=== PATIENT | female | born 1945 | race Caucasian/White ===

== ENCOUNTER → 2017-02-28 | Outpatient (CLI) | payer MEDICARE ==
[~2017-02-28] MED LIST: ANTIVERT PO; ASPIRIN PO; ATARAX PO; COLCHICINE PO; DIOVAN PO; FLEXERIL10 MG PO; KEFLEX PO; MEDROL PO; MENTHOL; PHENERGAN25 MG PO; QUESTRAN LIGH4 G/PKT PO; ULTRAM PO; URSO FORTE PO; ZOFRAN ODT4 MG PO; [UNRECOGNIZED DRUG - OTHER]
--- NOTE | ~2017-02-28 | MY29 ---
[facility] A Service of [facility] RADIOLOGY TEXT RESULTS PATIENT: SUPA LOPEZ [facility] 45 UNIT #: [id number] AGE: [address]: Nidia Yoon SEX: F ORDER DR: [id number] [facility] [address] [place], [place] [address] [id number] O MR#: [id number] Acc #: [id number] NAME: SUPA LOPEZ : 1945 SEX: F STUDY DATE/TIME: 02/28/2017 13:48 [facility] ROOM: STUDY DESCRIPTION: MY ESTUARDO SCREENING W/ CAD BILAT Attending Physician: Nidia Yoon A.P.R.N. Referring Physician: Nidia Yoon A.P.R.N. Ordering Physician: Nidia Yoon A.P.R.N. Primary Care Physician: Laila Guevara M.D. MEDICAL IMAGING REPORT This report is preliminary unless electronic signature is present EXAM Bilateral Digital Screening Mammogram with CAD INDICATION Breast cancer screening. 71-year-old asymptomatic female who reports an aunt with breast cancer. She has personal history of breast cancer. Patient also reports reduction mammoplasty in the 1970s. COMPARISON December 02, 2015 July 21, 2014 May 27, 2013 March 12, 2012 January 17, 2011 January 02, 2010 July 22, 2007 November 26, 2005. FINDINGS The breasts are almost entirely fatty. No suspicious findings are present. IMPRESSION No mammographic evidence of malignancy. Annual screening mammography and clinical breast exam are recommended. A result letter will be sent to the patient. Patients over the age of 40 are entered into a reminder system with target due date for the next mammogram. BIRADS: 1 Negative Dictated by... Shon Wade M.D. THIS IS AN ELECTRONICALLY VERIFIED REPORT Shon Wade M.D. at 03/03/2017 10:22 PM BLM/rnr [facility] A Service of [facility] RADIOLOGY TEXT RESULTS PATIENT: SUPA LOPEZ LOCATION: [facility] #: [id number] : 45 UNIT #: [id number] AGE: [address]: Nidia Yoon SEX: F ORDER DR: TD: 02/28/2017 21:51 JOB #: [id number] MEDICAL IMAGING REPORT Page 1 of 1 COPY
--- NOTE | ~2017-02-28 | BD1 ---
[facility] A Service of [facility] RADIOLOGY TEXT RESULTS PATIENT: SUPA LOPEZ LOCATION: [facility] : 45 UNIT #: [id number] AGE: [address]: Nidia Yoon SEX: F ORDER DR: [id number] [facility] [address] [place], [place] [address] [id number] O MR#: [id number] Acc #: [id number] NAME: SUPA LOPEZ : 1945 SEX: F STUDY DATE/TIME: 02/28/2017 13:29 UNIT: [facility] ROOM: STUDY DESCRIPTION: BD Dexa Bone Dens 1+ Site Attending Physician: Nidia Yoon A.P.R.N. Referring Physician: Nidia Yoon A.P.R.N. Ordering Physician: Nidia Yoon A.P.R.N. Primary Care Physician: Laila Guevara M.D. MEDICAL IMAGING REPORT This report is preliminary unless electronic signature is present EXAM DXA scan of the lumbar spine and hips. INDICATION Postmenopausal osteoporosis screening. COMPARISON Comparison study is 08/17/2014 and that study showed osteoporosis. FINDINGS Study was done on a Hologic machine. The L1 through L4 bone mineral density is 1.077 g/cm2, with T-score of 0.3 and Z-score of 2.5. The left hip neck bone mineral density is 0.54 g/cm2, for a T-score of -2.8 and Z-score -0.9. No fractures visible. IMPRESSION The lowest T-score today is in the left hip, which is -2.8, indicating osteoporosis. It is slightly worse than on the prior study from 08/17/2014, with a T-score of -2.5. Dictated by... Sudheer Tavares M.D. THIS IS AN ELECTRONICALLY VERIFIED REPORT Sudheer Tavares M.D. at 03/02/2017 8:37 AM NIALL/manolo TD: 03/01/2017 19:23 JOB #: [id number] [facility] A Service of [facility] RADIOLOGY TEXT RESULTS PATIENT: SUPA LOPEZ [id number] 45 UNIT #: [id number] AGE: [address]: Nidia Yoon SEX: F ORDER DR: MEDICAL IMAGING REPORT Page 1 of 1 COPY
== END | disposition home or self-care (01) ==
LOC: CWCC 13:00
DX: Z13.820 Encounter for screening for osteoporosis (principal); Z12.31 Encounter for screening mammogram for malignant neoplasm of breast; Z85.3 Personal history of malignant neoplasm of breast; Z80.3 Family history of malignant neoplasm of breast; Z78.0 Asymptomatic menopausal state; M81.0 Age-related osteoporosis without current pathological fracture; Z98.890 Other specified postprocedural states
CPT/HCPCS: 77080; G0202